=== PATIENT | male | born 1940 | race Caucasian/White ===

== ENCOUNTER 2016-11-07 09:12 | Day surgery (SDC) | payer OTHER ==
[~2016-11-07] VITALS: Ht 172.7 cm; Wt 91.8 kg
[2016-11-07] VITALS (7 sets, daily range): BP systolic 106–132; BP diastolic 56–81; PULSE 48–59; RESP 16–20; TEMP 97.5–98.3; O2SAT 94–98
[~2016-11-07 09:12] MED LIST: ASMA220A IN; ASPI81 PO; COMBAER INH; CYAN100017 PO; CYCL1PAK PO; DUONI NEB; FORACAP INH; HCTZ50TA PO; IRON PO; LIPI40TA PO; LORTA5 PO; OMEP20TA39 PO; POTA-243 PO; TERA5CAP34 PO; VITA200017 PO
[2016-11-07 10:06] LABS: AUTOMATED NEUTROPHIL # 3.2 TH/MM3 (1.8-7.7); BASOPHIL % 0.6 % (0.0-2.0); EOSINOPHIL # 0.2 TH/MM3 (0-0.4); EOSINOPHIL % 4.4 % (0.0-4.0); HEMATOCRIT 42.9 % (39.0-51.0); HEMO FLAGS DIFF FINAL; LYMPH % 28.2 % (9.0-44.0); LYMPHOCYTE # 1.5 TH/MM3 (1.0-4.8); MEAN CELL VOLUME 93.5 FL (80.0-100.0); MEAN CORPUSCULAR HEMOGLOBIN 31.7 PG (27.0-34.0); MEAN CORPUSCULAR HGB CONC 33.9 % (32.0-36.0); MONO % 7.6 % (0.0-8.0); NEUT % 59.2 % (16.0-70.0); PLATELET COUNT 182 TH/MM3 (150-450); RED BLOOD COUNT 4.58 MIL/MM3 (4.50-5.90); RED CELL DISTRIBUTION WIDTH 13.9 % (11.6-17.2); WHITE BLOOD COUNT 5.4 TH/MM3 (4.0-11.0)
[2016-11-07] MEDS ORDERED: ALBUTEROL INH (10:13)
[2016-11-07] MEDS ORDERED: IPRATRO INH (10:13)
[2016-11-07] MEDS ORDERED: ASPI81CH37 CHEW (10:14)
[2016-11-07] MEDS ORDERED: ATOR40TA16 PO (10:15)
[2016-11-07] MEDS ORDERED: BETA0.052 TOPICAL (10:17)
[2016-11-07] MEDS ORDERED: CITA40TA4 PO (10:18)
[2016-11-07] MEDS ORDERED: OMEP20TA PO (10:19)
[2016-11-07] MEDS ORDERED: TRIA37.5 PO (10:20)
[2016-11-07] MEDS ORDERED: VITA10004 PO (10:22)
[2016-11-07] MEDS ORDERED: REFR0.5D9 EACH EYE (10:26)
[2016-11-07] MEDS ORDERED: GUAI600T11 PO (10:27)
[2016-11-07] MEDS ORDERED: VITA1000 PO (10:28)
[2016-11-07] MEDS ORDERED: SYMB80AE INH (10:30)
[2016-11-07] MEDS ORDERED: DONE5TAB7 PO (10:32)
[2016-11-07] MEDS: SODIUM CHLOR 0.9% 1000 ML IV SCH ×2 (10:45→15:25)
[2016-11-07] MEDS ORDERED: LIDOCAINE HCL 1% 20 ML VIAL ONE (12:53)
[2016-11-07] MEDS ORDERED: MIDAZOLAM HCL 5 MG/5 ML VIAL ONE (12:57)
--- NOTE | 2016-11-07 14:03 | PD.RAD ---
Post CT Procedure Prog Note Pre Procedure Diagnosis: (1) Multiple myeloma Post Procedure Diagnosis: (1) Multiple myeloma Procedure Date: Nov 07, 2016 Supervising Radiologist: Emerson Pratt Estimated blood loss: 10 ml Anesthesia: Local, Conscious Sedation Plan of Activity Patient to Unit: ROPU Patient Condition: Good See PACS Report for procedural detail/treatment Biopsy Imaging Guidance: CT Side: Right Biopsy Procedure: Bone, Bone Marrow Site: iliac crest Specimen: Core Biopsy, Fluid Emerson Pratt MD Nov 07, 2016 14:03
[2016-11-07 14:04] LABS: BONE MARROW PROCESSING COMPLETE; IRON STAIN DONE; JENNER GIEMSA STAIN DONE
--- NOTE | 2016-11-07 16:21 | RADRPT ---
EXAM DATE/TIME: 11/07/2016 13:17 [facility] COMPARISON: No previous studies available for comparison. INDICATIONS : Monoclonal gammopathy. SEDATION TIME: 15 minutes BIOPSY SITE: Right Iliac MEDICATION(S): 1.) 2 mg midazolam (Versed) IV 2.) 125 mcg fentanyl (Sublimaze) IV DEVICE(S): 1.) On-Control needle MEDICAL HISTORY : Carcinoma, prostate. Cardiovascular disease. SURGICAL HISTORY : CABG ENCOUNTER: Initial ACUITY: 1 day PAIN SCORE: 1/10 LOCATION: Right lower quadrant A total of one core specimen(s) were obtained and sent to the laboratory for pathologic evaluation. PROCEDURE: 1. CT guided pelvic biopsy. 2. Conscious sedation with continuous EKG and oximetry monitoring. 3. EKG and oximetry remained stable throughout the procedure. Prior to the procedure informed consent was obtained. Any appropriate prior imaging studies were rev iewed. Using automated exposure control and adjustment of the mA and/or kV according to patient size , radiation dose was kept as low as reasonably achievable to obtain optimal diagnostic quality images . DICOM format image data is available electronically for review and comparison. The site was prepped in a sterile fashion. Full sterile technique was used, including cap, mask, edith rile gloves and gown and a large sterile sheet. Hand hygiene and 2% chlorhexidine and/or betadine/al cohol prep was utilized per protocol for cutaneous antisepsis. The skin and subcutaneous tissues wer e infiltrated with local anesthetic solution. With CT guidance the previously identified target was localized. Biopsy was performed using the presc ribed needle as above. Following biopsy marrow aspiration was performed with repeat puncture. Adequa te hemostasis was obtained with compression at the puncture site. Follow-up CT scan reveals no hemorrhage. Conscious sedation was performed with the prescribed dosages and duration as above in the presence of an independent trained radiology nurse to assist in the monitoring of the patient. EKG and oximetry remained stable throughout the procedure. The patient tolerated the procedure well and there were no complications. The patient was sent to Radiology Outpatient Unit in stable condition. CONCLUSION: 1. Uncomplicated CT guided bone marrow aspirate. 2. Uncomplicated CT guided bone marrow biopsy. Emerson Pratt MD on November 07, 2016 at 16:18 Board Certified Radiologist. This report was verified electronically.
== END 2016-11-07 16:15 | disposition home or self-care (01) ==
LOC: HRAD 09:12 → HRIP 09:20 → HRAD 16:15
PROVIDERS: ATTEND Internal Medicine
DX: D47.2 Monoclonal gammopathy (principal); I25.10 Atherosclerotic heart disease of native coronary artery without angina pectoris; I10 Essential (primary) hypertension; I25.2 Old myocardial infarction; J44.9 Chronic obstructive pulmonary disease, unspecified; Z85.46 Personal history of malignant neoplasm of prostate; Z95.1 Presence of aortocoronary bypass graft; Z79.82 Long term (current) use of aspirin; Z79.51 Long term (current) use of inhaled steroids; Z79.899 Other long term (current) drug therapy
CPT/HCPCS: 38221; 77012; 85025; 85097; 88184; 88185; 88237; 88264; 88280; 88305; 88311; 88313; 88341; 88342; 88368; 88377; 99152; C1830; G0364; J2250; J3010; J7030